=== PATIENT | male | born 1965 | race Caucasian/White ===

== ENCOUNTER → 2016-08-28 | Outpatient (CLI) | payer OTHER ==
[~2016-08-28] MED LIST: BENAZEPRIL HCL5 MG PO; BENAZEPRIL40 MG PO; CELEXA 20MG20 MG/TA1 PO; CITALOPRAM HBR10 MG PO
[2016-08-28 16:40] VITALS: BP 144/88
== END ==
LOC: AMSURD 16:12
DX: Z00.00 Encounter for general adult medical examination without abnormal findings (principal); M79.602 Pain in left arm; R06.83 Snoring; F41.9 Anxiety disorder, unspecified; F32.9 Major depressive disorder, single episode, unspecified; E03.9 Hypothyroidism, unspecified; R53.83 Other fatigue; I10 Essential (primary) hypertension

== ENCOUNTER → 2017-05-21 | Outpatient (CLI) | payer BC ==
[2016-08-28 16:40] VITALS: BP 144/88
[2017-05-21 09:29] LABS: HEMATOCRIT 43.7 % (42.0-52.0); HEMOGLOBIN 14.8 g/dL (13.5-18.0); MEAN PLATELET VOLUME 9.4 fl (7.4-10.4); RED BLOOD COUNT 5.24 M/mm3 (4.20-5.60); RED CELL DISTRIBUTION WIDTH 14.2 % (11.5-14.5); WHITE BLOOD COUNT 6.5 K/mm3 (4.8-10.8)
[2017-05-21 09:35] LABS: ALBUMIN 4.1 g/dL (3.5-5.0); BUN/CREATININE RATIO 15.1 (6.0-26.0); CALCIUM 9.4 mg/dL (8.4-10.2); POTASSIUM 4.4 mmol/L (3.6-5.0); TOTAL BILIRUBIN 0.8 mg/dL (0.2-1.3)
== END ==
LOC: LAB 09:01
PROVIDERS: Family Medicine
DX: M25.50 Pain in unspecified joint (principal)

== ENCOUNTER → 2017-10-02 | Outpatient (CLI) | payer BC ==
[2016-08-28 16:40] VITALS: BP 144/88
[2017-10-02 08:48] LABS: ALBUMIN 4.1 g/dL (3.5-5.0); BUN/CREATININE RATIO 15.7 (6.0-26.0); CALCIUM 9.2 mg/dL (8.4-10.2); POTASSIUM 4.1 mmol/L (3.6-5.0); TOTAL BILIRUBIN 0.8 mg/dL (0.2-1.3); TOTAL PROTEIN 7.1 g/dL (6.3-8.2)
== END ==
LOC: LAB 08:15
PROVIDERS: Family Medicine
DX: I10 Essential (primary) hypertension (principal); E78.00 Pure hypercholesterolemia, unspecified; E03.9 Hypothyroidism, unspecified

== ENCOUNTER → 2017-10-10 | Outpatient (CLI) | payer BC ==
[2016-08-28 16:40] VITALS: BP 144/88
== END ==
LOC: LAB 16:58
PROVIDERS: Family Medicine
DX: Z12.5 Encounter for screening for malignant neoplasm of prostate (principal); R73.9 Hyperglycemia, unspecified

== ENCOUNTER → 2018-03-30 | Outpatient (CLI) | payer BC ==
[2016-08-28 16:40] VITALS: BP 144/88
[2018-03-30 09:51] LABS: CALCIUM 9.3 mg/dL (8.4-10.2); POTASSIUM 4.7 mmol/L (3.6-5.0)
== END ==
LOC: LAB 09:03
PROVIDERS: Family Medicine
DX: M25.562 Pain in left knee (principal); M25.561 Pain in right knee; M25.552 Pain in left hip; M25.551 Pain in right hip; I10 Essential (primary) hypertension; F32.9 Major depressive disorder, single episode, unspecified; R73.9 Hyperglycemia, unspecified; F41.9 Anxiety disorder, unspecified; E66.01 Morbid (severe) obesity due to excess calories

== ENCOUNTER → 2018-08-21 | Outpatient (CLI) | payer BC ==
[2016-08-28 16:40] VITALS: BP 144/88
[2018-08-21 08:41] LABS: ALBUMIN 4.6 g/dL (3.5-5.0); CALCIUM 9.6 mg/dL (8.4-10.2); POTASSIUM 4.3 mmol/L (3.6-5.0); TOTAL BILIRUBIN 0.9 mg/dL (0.2-1.3); TOTAL PROTEIN 7.4 g/dL (6.3-8.2)
== END ==
LOC: LAB 08:12
PROVIDERS: Family Medicine
DX: E03.9 Hypothyroidism, unspecified (principal); R73.01 Impaired fasting glucose; I10 Essential (primary) hypertension

== ENCOUNTER → 2018-10-01 | Outpatient (CLI) | payer BC ==
[2016-08-28 16:40] VITALS: BP 144/88
== END ==
LOC: LAB 12:59
DX: M10.9 Gout, unspecified (principal)

== ENCOUNTER → 2020-04-26 | Outpatient (CLI) | payer BC ==
[2016-08-28 16:40] VITALS: BP 144/88
== END ==
LOC: LAB 16:04
DX: U07.1 COVID-19 (principal)

== ENCOUNTER → 2020-05-02 | Outpatient (CLI) | payer BC ==
[2016-08-28 16:40] VITALS: BP 144/88
[2020-05-02 08:19] LABS: EOS # 0.1 (0.04-0.40); EOS % 1.6 % (0.0-4.0); HEMATOCRIT 43.4 % (42.0-52.0); HEMOGLOBIN 14.9 g/dL (13.5-18.0); LYMPH# 2.1 (1.50-4.00); MEAN CELL VOLUME 84 fl (78-100); MEAN CORPUSCULAR HEMOGLOBIN 29 pg (27-31); MEAN CORPUSCULAR HGB CONC 34 g/dL (33-37); MEAN PLATELET VOLUME 8.7 fl (7.4-10.4); MONO # 0.6 (0.20-0.80); NEU # 3.5 (1.40-6.50); PLATELET COUNT 303 K/mm3 (130-400); RED CELL DISTRIBUTION WIDTH 12.7 % (11.5-14.5); WHITE BLOOD COUNT 6.3 K/mm3 (4.8-10.8)
[2020-05-02 08:23] LABS: ALBUMIN 4.5 g/dL (3.5-5.0); POTASSIUM 4.2 mmol/L (3.5-5.1)
[2020-05-02 08:24] LABS: CALCIUM 9.7 mg/dL (8.3-10.5)
[2020-05-02 08:25] LABS: TOTAL PROTEIN 7.2 g/dL (6.4-8.3)
[2020-05-02 08:27] LABS: TOTAL BILIRUBIN 0.7 mg/dL (0.2-1.2)
[2020-05-02 09:08] LABS: PROTHROMBIN TIME 9.8 SECONDS (9.0-12.0)
[2020-05-02 09:20] LABS: URINE APPEARANCE CLEAR; URINE BILIRUBIN NEGATIVE (NEGATIVE); URINE BLOOD NEGATIVE (NEGATIVE); URINE COLOR YELLOW; URINE GLUCOSE NEGATIVE (NEGATIVE); URINE KETONE NEGATIVE (NEGATIVE); URINE LEUKOCYTE ESTERASE NEGATIVE (NEGATIVE); URINE MUCUS PRESENT (NOT PRESENT); URINE NITRATE NEGATIVE (NEGATIVE); URINE PROTEIN(semi-quant) 1+ mg/dL (NEGATIVE); URINE UROBILINOGEN NORMAL (NORMAL)
== END ==
LOC: LAB 07:51
PROVIDERS: Family Medicine
DX: Z01.818 Encounter for other preprocedural examination (principal); M16.12 Unilateral primary osteoarthritis, left hip; R73.9 Hyperglycemia, unspecified; E03.9 Hypothyroidism, unspecified

== ENCOUNTER → 2020-05-08 | Outpatient (CLI) | payer BC ==
[2016-08-28 16:40] VITALS: BP 144/88
== END ==
LOC: PT 08:07 → EDSTATUS 08:12
DX: Z96.642 Presence of left artificial hip joint (principal)

== ENCOUNTER 2020-05-23 08:10 | Outpatient (RCR) | payer BC ==
[2016-08-28 16:40] VITALS: BP 144/88
== END 2020-06-23 16:30 | disposition home or self-care (01) ==
LOC: PT 08:10
DX: Z96.642 Presence of left artificial hip joint (principal)

== ENCOUNTER → 2021-08-04 | Outpatient (CLI) | payer OTHER ==
[2021-08-04 10:42] LABS: POTASSIUM 4.2 mmol/L (3.5-5.1)
[2021-08-04 10:43] LABS: ALBUMIN 4.2 g/dL (3.5-5.0)
[2021-08-04 10:44] LABS: CALCIUM 9.8 mg/dL (8.3-10.5)
[2021-08-04 10:45] LABS: TOTAL PROTEIN 6.6 g/dL (6.4-8.3)
[2021-08-04 10:47] LABS: TOTAL BILIRUBIN 0.9 mg/dL (0.2-1.2)
== END ==
LOC: LAB 09:53
PROVIDERS: Family Medicine
DX: Z13.220 Encounter for screening for lipoid disorders (principal); I10 Essential (primary) hypertension; E03.9 Hypothyroidism, unspecified; R73.9 Hyperglycemia, unspecified

== ENCOUNTER → 2022-06-05 | Outpatient (CLI) | payer OTHER | LOC: RAD 10:32 | DX: M25.561 Pain in right knee (principal); M25.551 Pain in right hip ==

== ENCOUNTER → 2024-05-25 | Outpatient (CLI) | payer BC ==
[2024-05-25 08:58] LABS: CALCIUM 10.2 mg/dL (8.3-10.5)
== END ==
LOC: LAB 08:10
PROVIDERS: Family Medicine
DX: Z12.5 Encounter for screening for malignant neoplasm of prostate (principal); I10 Essential (primary) hypertension; E03.8 Other specified hypothyroidism